=== PATIENT | male | born 1980 | race African-American/Black ===

== ENCOUNTER 2024-07-09 02:09 | Emergency (ER) | payer OTHER ==
[~2024-07-09] VITALS: Ht 175.3 cm; Wt 18.2 kg
[2024-07-09 02:22] VITALS: BP 123/68; PULSE 118; RESP 18; TEMP 97.8; O2SAT 99
[2024-07-09] MEDS: LIDOCAINE 1% 10 ML VIAL SQ ONE (03:05)
[2024-07-09] MEDS: PERTUSS(ACELL),DIPH,TET/PF 0.5 ML SYRINGE [ADULT] IM. ONE (03:05)
[2024-07-09] MEDS: BACITRACIN 0.9 GM PACKET OINTMENT TP ONE (03:05)
[2024-07-09] MEDS: ACETAMINOPHEN/CODEINE 300-30 MG TABLET PO ONE (04:24)
[2024-07-09] MEDS: IBUPROFEN 600 MG TABLET PO ONE (04:24)
[2024-07-09] MEDS ORDERED: ACET-66 PO (04:33)
[2024-07-09] MEDS ORDERED: IBUP-1554 PO (04:33)
[2024-07-09] MEDS ORDERED: BACI28.410 TP (04:33)
== END 2024-07-09 06:11 | disposition home or self-care (01) ==
LOC: EMS 02:09
DX: S01.312A Laceration without foreign body of left ear, initial encounter (principal); W26.8XXA Contact with other sharp object(s), not elsewhere classified, initial encounter; Y93.89 Activity, other specified; Y92.89 Other specified places as the place of occurrence of the external cause; Y99.8 Other external cause status
CPT/HCPCS: 99285; 70450; 70486; 72125; 90715; 90471; 12013; J3490

== ENCOUNTER 2024-07-11 12:49 | Emergency (ER) | payer OTHER ==
[~2024-07-11] VITALS: Ht 167.6 cm; Wt 63.6 kg
[~2024-07-11 12:49] MED LIST: ACET-66 PO; BACI28.410 TP; IBUP-1554 PO
[2024-07-11 12:53] VITALS: BP 97/63; PULSE 71; RESP 18; TEMP 98.4; O2SAT 98
== END 2024-07-11 13:23 | disposition left against medical advice (07) ==
LOC: EMS 12:49
DX: S00.4 Superficial injury of ear (principal); Z53.21 Procedure and treatment not carried out due to patient leaving prior to being seen by health care provider; X58.XXXD Exposure to other specified factors, subsequent encounter

== ENCOUNTER 2024-07-21 16:07 | Emergency (ER) | payer OTHER ==
[~2024-07-21] VITALS: Ht 167.6 cm; Wt 54.5 kg
[~2024-07-21 16:07] MED LIST changes: -ACET-66 PO; -IBUP-1554 PO
[2024-07-21 16:10] VITALS: BP 94/56; PULSE 70; RESP 18; TEMP 98.2; O2SAT 99
== END 2024-07-21 19:50 | disposition left against medical advice (07) ==
LOC: EMS 16:15
DX: S01.312D Laceration without foreign body of left ear, subsequent encounter (principal); Z48.02 Encounter for removal of sutures; Z53.21 Procedure and treatment not carried out due to patient leaving prior to being seen by health care provider; X58.XXXD Exposure to other specified factors, subsequent encounter